=== PATIENT | female | born 1965 ===

== ENCOUNTER → 2023-01-26 15:57 | Outpatient (BNVA) | payer BC, SELFPAY | PROVIDERS: PCP Family Medicine; Visit Provider Psychiatry & Neurology Neurology | DX: S16.1XXA Strain of muscle, fascia and tendon at neck level, initial encounter (principal); G43.019 Migraine without aura, intractable, without status migrainosus; X58.XXXA Exposure to other specified factors, initial encounter; Z79.899 Other long term (current) drug therapy | CPT/HCPCS: 36415; 82607; 82746; 83735; 83921; 84439; 84443; 84481 ==